=== PATIENT | male | born 1985 | race Caucasian/White ===

== ENCOUNTER 2020-05-28 17:13 | Emergency (ER) | payer BC ==
[2020-05-28] MEDS ORDERED: Sodium Chloride 0.9% 10 ML Syringe FLUSH PRN (17:48)
[2020-05-28] MEDS ORDERED: Midazolam 1 MG/ML 2 ML SDV IVPUSH ONE (17:48)
[2020-05-28] MEDS ORDERED: Diphtheria,Pertussis(Acell),Tetanus Vaccine 0.5 ML Syringe IM ONE (17:49)
[2020-05-28] MEDS ORDERED: fentaNYL 100 MCG/2 ML SDV IVPUSH ONE (17:49)
[2020-05-28] MEDS ORDERED: Lidocaine 1% 10 ML MDV INJECT ONE (17:49)
[2020-05-28] MEDS ORDERED: ceFAZolin 1 GM in Premix Bag 1 BAG IV ONE (17:50)
[2020-05-28] MEDS ORDERED: Sodium Chloride 0.9% 500 ML ONE (18:10)
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
--- NOTE | 2020-06-07 12:24 | CR ---
PROCEDURE INFORMATION: Exam: XR Left Hand Exam date and time: 05/28/2020 7:03 PM Age: 34 years old Clinical indication: Injury or trauma; Other: Puncture wound at base of 4th metacarpal; Hand; Left TECHNIQUE: Imaging protocol: XR Left hand. Views: 1 or 2 views. COMPARISON: No relevant prior studies available. FINDINGS: Bones/joints: Osseous morphology and alignment appear normal. There are no signs of fracture or dislocation. Soft tissues: The soft tissues appear unremarkable. There are no signs of soft tissue gas. There is no evidence of a radio-opaque foreign body. IMPRESSION: Normal Thank you for allowing us to participate in the care of your patient. Dictated and Authenticated by: Steve Alves MD 05/28/2020 8:17 PM Central Time ([place] & [place]) CONFIDENTIALITY STATEMENT This report is intended only for use by the referring physician, and only in accordance with law. If you received this in error, call [phone]. Page 1 [facility] 1 [facility]
== END 2020-05-28 19:52 | disposition home or self-care (01) ==
LOC: JD.ED 17:13
DX: S60.552A Superficial foreign body of left hand, initial encounter (principal); J45.909 Unspecified asthma, uncomplicated; Z91.018 Allergy to other foods; Z88.4 Allergy status to anesthetic agent; W45.8XXA Other foreign body or object entering through skin, initial encounter
CPT/HCPCS: 10120; 73120; 90471; 90715; 96365; 99283; J0690; J2001; J2250; J3010; J7040